=== PATIENT | female | born 1995 | race Native Hawaiian/Other Pacific Islander ===

== ENCOUNTER 2019-01-10 08:31 | Emergency (ER) | payer OTHER ==
[2019-01-10 08:55] VITALS: BP 110/62
--- NOTE | 2019-01-10 08:55 | Emergency Department Report ---
Chief Complaint: Sore Throat Stated Complaint: SORE THROAT Time Seen by Provider: 01/10/19 08:55 - HPI History of Present Illness: [employer] IN[employer] VSS MSE COMPLETED MSE screening note: Focused history and physical exam performed. Due to findings the following was ordered: ED Disposition for MSE Condition: Stable
[2019-01-10] MEDS ORDERED: DECADRON IM ONE (09:54)
[2019-01-10] MEDS ORDERED: AMOXICILLIN ORAL LIQD PO ONE (09:55)
--- NOTE | 2019-01-10 09:55 | Emergency Department Report ---
Minor Respiratory - HPI Chief Complaint: Sore Throat Stated Complaint: SORE THROAT Time Seen by Provider: 01/10/19 08:55 Duration: 2 Days Pain Location: Throat Severity: mild Minor Respiratory: Yes Rhinorrhea, Yes Sore Throat, Yes Able to Tolerate Fluids, No Ear Pain, No Cough, No Sick Contacts, No Hemoptysis, No Chest Pain, No Shortness of Breath, No Fever Other History: Patient is a 23-year-old female who comes to the ER complaining of a sore throat. She denies fever. She states that it hurts to swallow. ED Review of Systems ROS: Stated complaint: SORE THROAT Other details as noted in HPI Comment: All other systems reviewed and negative Constitutional: see HPI. denies: chills, fever Eyes: as per HPI. denies: eye pain, eye discharge ENT: as per HPI, throat pain Respiratory: see HPI. denies: cough, orthopnea, shortness of breath, SOB with exertion Cardiovascular: denies: chest pain, dyspnea on exertion Endocrine: denies: flushing Gastrointestinal: denies: nausea Genitourinary: denies: dysuria Musculoskeletal: denies: back pain Skin: denies: lesions Neurological: denies: weakness Psychiatric: denies: depression Hematological/Lymphatic: denies: easy bleeding ED Past Medical Hx - Past Medical History Previous Medical History?: No Additional medical history: Vaginal delivery 05-16-2013 - Surgical History Past Surgical History?: No - Family History Family history: no significant - Social History Smoking Status: Never Smoker Substance Use Type: None - Medications Home Medications: Home Medications Medication Instructions Recorded Confirmed Last Taken Type Amoxicillin 500 mg PO BID #20 capsule 01/10/19 Unknown Rx Minor Respiratory Exam - Exam General: Vital signs noted. No distress. Alert and acting appropriately. HEENT: Yes Pharyngeal Erythema, Yes Pharyngeal Exudates, Yes Moist Mucous Membranes, Yes Rhinorrhea, No Conjuctival Injection, No Frontal Tenderness, No Maxillary Tenderness Ear: Neither TM Bulge, Neither TM Erythema, Neither EAC Pain, Neither EAC Discharge Neck: Yes Supple, No Adenopathy Lungs: Yes Good Air Exchange, No Wheezes, No Ronchi, No Stridor, No Cough, No Labored Respirations, No Retractions, No Use of Accessory Muscles, No Other Abnormal Lung Sounds Heart: Yes Regular, No Murmur Abdomen: Yes Normal Bowel Sounds, No Tenderness, No Peritoneal Signs Skin: No Rash, No Edema Neurologic: Alert and oriented, no deficits. Musculoskeletal: Unremarkable. ED Course Vital Signs 01/10/19 08:48 Temperature 99.9 F H Pulse Rate 100 H Respiratory 16 Rate Blood Pressure 110/62 O2 Sat by Pulse 96 Oximetry ED Medical Decision Making - Medical Decision Making Labs 01/10/19 08:55 Group A Strep Rapid Positive A Patient was medicated in the emergency room. Patient discharged home with discharge instructions including follow-up Critical care attestation.: If time is entered above; I have spent that time in minutes in the direct care of this critically ill patient, excluding procedure time. ED Disposition Clinical Impression: Pharyngitis, Strep pharyngitis Disposition: - TO HOME OR SELFCARE Is pt being admited?: No Does the pt Need Aspirin: No Condition: Stable Instructions: Pharyngitis in Children (ED) Additional Instructions: hydrate well with water meds as ordered today good handwashing follow up pcp this week motrin or tylenol for pain Prescriptions: Amoxicillin 500 mg PO BID #20 capsule Referrals: QUITA YEAGER MD [Primary Care Provider] - 3-5 Days Time of Disposition: 10:06
== END 2019-01-10 10:51 | disposition home or self-care (01) ==
LOC: ED 08:31
DX: J20.9 Acute bronchitis, unspecified (principal)
CPT/HCPCS: 87430; 96372; 99283; J1100

== ENCOUNTER 2021-02-01 07:03 | Emergency (ER) | payer OTHER ==
[2021-02-01 07:47] VITALS: BP 94/64
[2021-02-01 08:43] LABS: Hematocrit 42.4 % (30.3-42.9); Hemoglobin 14.4 gm/dl (10.1-14.3); Mean Corpuscular HGB Conc 34 % (30-34); Mean Corpuscular Volume 89 fl (79-97); Platelet Count 214 K/mm3 (140-440); Red Blood Count 4.78 M/mm3 (3.65-5.03); Red Cell Distribution Width 13.9 % (13.2-15.2)
[2021-02-01 09:10] LABS: Alanine Aminotransferase 16 units/L (7-56); Albumin 4.6 g/dL (3.9-5); Blood Urea Nitrogen 12 mg/dL (7-17); Calcium 10.1 mg/dL (8.4-10.2); Hemolysis Index 3
[2021-02-01 09:15] LABS: BUN/Creatinine Ratio 20
[2021-02-01] MEDS ORDERED: ONDANSETRON 4 MG ODT TAB ONE (10:04)
[2021-02-01] MEDS ORDERED: ONDANSETRON 4 MG ODT TAB PO ONE (10:07)
--- NOTE | 2021-02-01 10:15 | Emergency Department Report ---
ED Female HPI - General Chief complaint: Nausea/Vomiting/Diarrhea Stated complaint: 9 WEEKS ;VOMITING Time Seen by Provider: 02/01/21 10:11 Source: patient Mode of arrival: Ambulatory Limitations: No Limitations - History of Present Illness Initial comments: Patient is a 25-year-old female that comes to the emergency room with nausea and vomiting associated with . Her last menstrual cycle was 1027. She is 9 weeks . She has seen her DIRECTOR EMERGENCY for nausea and vomiting, they gave her prescription, but she cannot get to pick it up. I told the patient that we would give her Zofran again today but she could walk across the street and get her medications. She has not had any active vomiting in the emergency room. 4, para 1, miscarriage 1, 1 Patient denies any cough, dysuria, abdominal pain, vaginal discharge, vaginal bleeding. -: Gradual, days(s) Severity: moderate Severity scale (0 -10): 0 Improves with: none Worsens with: none Are you Now?: Yes Associated Symptoms: denies other symptoms - Related Data Sexually active: Yes : 4 Para: 1 A: 2 Previous Rx's Medication Instructions Recorded Last Taken Type Ondansetron [Zofran Odt] 4 mg PO Q8HR PRN #20 tab.rapdis 02/01/21 Unknown Rx Allergies Allergy/AdvReac Type Severity Reaction Status Date / Time iodine Allergy Hives Verified 01/10/19 09:57 seafood Allergy Hives Uncoded 09/04/16 13:33 ED Review of Systems ROS: Stated complaint: 9 WEEKS ;VOMITING Other details as noted in HPI Comment: All other systems reviewed and negative ED Past Medical Hx - Past Medical History Previous Medical History?: No Additional medical history: Vaginal delivery 05-16-2013 - Surgical History Past Surgical History?: No - Social History Smoking Status: Never Smoker Substance Use Type: None - Medications Home Medications: Home Medications Medication Instructions Recorded Confirmed Last Taken Type Ondansetron [Zofran Odt] 4 mg PO Q8HR PRN #20 tab.rapdis 02/01/21 Unknown Rx ED Physical Exam - General Limitations: No Limitations General appearance: alert, in no apparent distress - Head Head exam: Present: atraumatic, normocephalic - Eye Eye exam: Present: normal appearance - ENT ENT exam: Present: mucous membranes moist - Neck Neck exam: Present: normal inspection - Respiratory Respiratory exam: Present: normal lung sounds bilaterally. Absent: respiratory distress - Cardiovascular Cardiovascular Exam: Present: regular rate, normal rhythm. Absent: systolic murmur, diastolic murmur, rubs, gallop - GI/Abdominal GI/Abdominal exam: Present: soft, normal bowel sounds - Extremities Exam Extremities exam: Present: normal inspection - Back Exam Back exam: Present: normal inspection - Neurological Exam Neurological exam: Present: alert, oriented X3 - Psychiatric Psychiatric exam: Present: normal affect, normal mood - Skin Skin exam: Present: warm, dry, intact, normal color. Absent: rash ED Course Vital Signs 02/01/21 07:45 Temperature 97.6 F Pulse Rate 76 Respiratory 16 Rate Blood Pressure 94/64 O2 Sat by Pulse 99 Oximetry ED Medical Decision Making - Lab Data Result diagrams: 02/01/21 08:25 02/01/21 08:25 - Medical Decision Making Lab Results 02/01/21 02/01/21 02/01/21 Range/Units 08:25 08:25 08:25 WBC 14.4 H (4.5-11.0) K/mm3 RBC 4.78 (3.65-5.03) M/mm3 Hgb 14.4 H (10.1-14.3) gm/dl Hct 42.4 (30.3-42.9) % MCV 89 (79-97) fl MCH 30 (28-32) pg MCHC 34 (30-34) % RDW 13.9 (13.2-15.2) % Plt Count 214 (140-440) K/mm3 Seg Neutrophils % Pollution Control Technician Sodium 134 L (137-145) mmol/L Potassium 3.7 (3.6-5.0) mmol/L Chloride 96.9 L (98-107) mmol/L Carbon Dioxide 25 (22-30) mmol/L Anion Gap 16 mmol/L BUN 12 (7-17) mg/dL Creatinine 0.6 (0.6-1.2) mg/dL Estimated GFR > 60 ml/min BUN/Creatinine Ratio 20 % Glucose 120 H (65-100) mg/dL Calcium 10.1 (8.4-10.2) mg/dL Total Bilirubin 0.50 (0.1-1.2) mg/dL AST 25 (5-40) units/L ALT 16 (7-56) units/L Alkaline Phosphatase 61 (35-129) units/L Total Protein 7.5 (6.3-8.2) g/dL Albumin 4.6 (3.9-5) g/dL Albumin/Globulin Ratio 1.6 % Lipase 14 (13-60) units/L HCG, Quant [id number] H (0-4) mIU/mL Vital Signs 02/01/21 07:45 Temperature 97.6 F Pulse Rate 76 Respiratory 16 Rate Blood Pressure 94/64 O2 Sat by Pulse 99 Oximetry 9 w preg with no vag bleeding or discharge Has had care. Medicated with NS/zofran On reexam- taking po without difficulty Pt dc to home with dc plan of care including obgyn follow up. She verbalizes understanding of plan. Ambulatory, non ill and non toxic on discharge. - Differential Diagnosis n/v of preg; ro uti Critical care attestation.: If time is entered above; I have spent that time in minutes in the direct care of this critically ill patient, excluding procedure time. ED Disposition Clinical Impression: , Nausea and vomiting in Disposition: DC-01 TO HOME OR SELFCARE Is pt being admited?: No Does the pt Need Aspirin: No Condition: Stable Instructions: First Trimester of Additional Instructions: MED ORDERED TODAY PLEASE GO ACROSS THE STREET AND GET YOUR MED HYDRATE WELL WITH WATER FOLLOW UP WITH OBGYN [facility] FOR ONGOING CARE AND CARE Prescriptions: Ondansetron [Zofran Odt] 4 mg PO Q8HR PRN #20 tab.rapdis PRN Reason: Vomiting Referrals: PRIMARY CARE, [Primary Care Provider] - 3-5 Days BLAISE COHEN MD [Staff Physician] - 3-5 Days Time of Disposition: 10:20
[2021-02-01] MEDS ORDERED: SODIUM CHLORIDE 0.9% 1000 ML 1,000 ML IV ONE ×2 (10:20→12:20)
[2021-02-01 11:31] LABS: Total Cells Counted 100
[2021-02-01 11:32] LABS: Ovalocytes Rare; Platelet Estimate Consistent w Auto
[2021-02-01 11:57] LABS: Bilirubin,Urine NEG (Negative); Blood,Urine NEG (Negative); Color,Urine Amber (Yellow); Mucus,Urine 3+ /HPF; Urobilinogen,Urine < 2.0 mg/dL (<2.0)
[2021-02-01] MEDS ORDERED: ONDANSETRON 4 MG/2 ML INJ IV ONE (12:27)
== END 2021-02-01 14:13 | disposition home or self-care (01) ==
LOC: ED 07:03
DX: O21.8 Other vomiting complicating pregnancy (principal); Z3A.09 9 weeks gestation of pregnancy; Z79.899 Other long term (current) drug therapy; Z91.013 Allergy to seafood; Z88.8 Allergy status to other drugs, medicaments and biological substances
CPT/HCPCS: 36415; 80053; 81001; 83690; 84702; 85007; 85025; 96361; 96374; 99283; J2405; J7030; Q0162

== ENCOUNTER 2021-02-20 21:23 | Emergency (ER) | payer OTHER ==
[2021-02-20] MEDS ORDERED: FAMOTIDINE 20 MG/2 ML INJ IV ONE (22:07)
[2021-02-20] MEDS ORDERED: SODIUM CHLORIDE 0.9% 1000 ML 1,000 ML IV ONE (22:07)
[2021-02-20] MEDS ORDERED: DICYCLOMINE 20 MG/2 ML INJ IM ONE (22:08)
[2021-02-20] MEDS ORDERED: PROCHLORPERAZINE EDISYLATE 10 MG/2 ML VIAL IV ONE (22:37)
[2021-02-20 22:53] LABS: Hematocrit 38.8 % (30.3-42.9); Hemoglobin 13.3 gm/dl (10.1-14.3); Mean Corpuscular HGB Conc 34 % (30-34); Mean Corpuscular Volume 88 fl (79-97); Platelet Count 206 K/mm3 (140-440); Red Blood Count 4.42 M/mm3 (3.65-5.03); Red Cell Distribution Width 13.5 % (13.2-15.2)
[2021-02-20 23:14] LABS: Alanine Aminotransferase 9 units/L (7-56); Albumin 4.3 g/dL (3.9-5); Blood Urea Nitrogen 8 mg/dL (7-17); Calcium 9.4 mg/dL (8.4-10.2); Hemolysis Index 6
[2021-02-20 23:16] LABS: BUN/Creatinine Ratio 20
[2021-02-20 23:28] LABS: Total Cells Counted 100
[2021-02-20 23:29] LABS: Ovalocytes Rare; RBC Morphology Normal
[2021-02-21] MEDS ORDERED: diphenhydrAMINE 50 MG/ML VIAL IV ONE ×2 (00:05→04:10)
[2021-02-21] MEDS ORDERED: SODIUM CHLORIDE 0.9% 1000 ML 1,000 ML IV ONE (00:05)
[2021-02-21] MEDS ORDERED: METOCLOPRAMIDE 10 MG/2 ML INJ IV ONE ×2 (00:05→04:08)
[2021-02-21 01:19] LABS: Bilirubin,Urine NEG (Negative); Blood,Urine NEG (Negative); Color,Urine Yellow (Yellow); Mucus,Urine 3+ /HPF; Urobilinogen,Urine < 2.0 mg/dL (<2.0)
--- NOTE | 2021-02-21 02:05 | Emergency Department Report ---
ED N/V/D HPI - General Chief complaint: Abdominal Pain Stated complaint: N/V, FATIGUE Source: patient Mode of arrival: Wheelchair Limitations: No Limitations - History of Present Illness Initial comments: Patient is a A2 25-year-old female with no past medical history and who is approximately 12 weeks gestation presents to the ED with complaint of acute onset persistent severe intractable nausea and vomiting for the last 12 hours. Patient states that she has not been able to keep anything down the last 12 hours and now feels lightheaded, generalized weakness and fatigue. Patient states that she has had multiple episodes of nausea and vomiting and that not even water stays down. Patient denies vaginal bleeding, vaginal discharge, abdominal pain, fever, chills, cough, chest pain, shortness of breath, sore throat, headache, dizziness, change in vision, traumatic injury or back pain MD complaint: nausea, vomiting -: Sudden, hour(s) (12) Description of Vomiting: food contents, watery, bilious Associated Abdominal Pain: No Location: diffuse Radiation: none Severity: severe Pain Scale: 7 Quality: dull Consistency: intermittent Improves with: none Worsens with: eating, vomiting Context: other (12 weeks gestation) Associated Symptoms: denies other symptoms, loss of appetite, malaise, nausea/vo miting, weakness. denies: myalgias, chest pain, cough, diaphoresis, fever/chills, headaches, rash, dysuria, shortness of breath, syncope, other - Related Data Previous Rx's Medication Instructions Recorded Last Taken Type Ondansetron [Zofran Odt] 4 mg PO Q8HR PRN #20 tab.rapdis 02/01/21 Unknown Rx Famotidine [Pepcid] 20 mg PO BID #40 tablet 02/21/21 Unknown Rx Prochlorperazine Maleate 10 mg PO Q6H PRN #30 tablet 02/21/21 Unknown Rx [Compazine] Promethazine HCl [Phenergan SUPPOS] 25 mg RC Q6H PRN #20 supp.rect 02/21/21 Unknown Rx Allergies Allergy/AdvReac Type Severity Reaction Status Date / Time iodine Allergy Hives Verified 01/10/19 09:57 seafood Allergy Hives Uncoded 09/04/16 13:33 ED Review of Systems ROS: Stated complaint: N/V, FATIGUE Other details as noted in HPI Constitutional: denies: chills, fever Eyes: denies: eye pain, eye discharge, vision change ENT: denies: ear pain, throat pain Respiratory: denies: cough, shortness of breath, wheezing Cardiovascular: denies: chest pain, palpitations Endocrine: no symptoms reported Gastrointestinal: nausea, vomiting. denies: abdominal pain, diarrhea, hematochezia Genitourinary: denies: urgency, dysuria, discharge Musculoskeletal: denies: back pain, joint swelling, arthralgia Skin: denies: rash, lesions Neurological: denies: headache, weakness, paresthesias Psychiatric: denies: anxiety, depression Hematological/Lymphatic: denies: easy bleeding, easy bruising ED Past Medical Hx - Past Medical History Previous Medical History?: No Additional medical history: Vaginal delivery 05-16-2013 - Social History Smoking Status: Never Smoker Substance Use Type: None - Medications Home Medications: Home Medications Medication Instructions Recorded Confirmed Last Taken Type Ondansetron [Zofran Odt] 4 mg PO Q8HR PRN #20 tab.rapdis 02/01/21 Unknown Rx Famotidine [Pepcid] 20 mg PO BID #40 tablet 02/21/21 Unknown Rx Prochlorperazine Maleate 10 mg PO Q6H PRN #30 tablet 02/21/21 Unknown Rx [Compazine] Promethazine HCl [Phenergan SUPPOS] 25 mg RC Q6H PRN #20 supp.rect 02/21/21 Unknown Rx ED Physical Exam - General Limitations: No Limitations General appearance: alert, in no apparent distress - Head Head exam: Present: atraumatic, normocephalic, normal inspection - Eye Eye exam: Present: normal appearance, PERRL, EOMI Pupils: Present: normal accommodation - ENT ENT exam: Present: normal exam, normal orophraynx, mucous membranes moist, TM's normal bilaterally, normal external ear exam - Neck Neck exam: Present: normal inspection, full ROM - Respiratory Respiratory exam: Present: normal lung sounds bilaterally. Absent: respiratory distress, wheezes, rales, rhonchi, chest wall tenderness, accessory muscle use, decreased breath sounds, prolonged expiratory - Cardiovascular Cardiovascular Exam: Present: regular rate, normal rhythm, normal heart sounds. Absent: systolic murmur, diastolic murmur, rubs, gallop - GI/Abdominal GI/Abdominal exam: Present: soft, normal bowel sounds. Absent: tenderness, guarding, hyperactive bowel sounds, hypoactive bowel sounds, mass - Extremities Exam Extremities exam: Present: normal inspection, full ROM, normal capillary refill - Back Exam Back exam: Present: normal inspection, full ROM. Absent: tenderness, CVA tenderness (R), CVA tenderness (L), muscle spasm, paraspinal tenderness - Neurological Exam Neurological exam: Present: alert, oriented X3, CN II-XII intact, normal gait, reflexes normal - Psychiatric Psychiatric exam: Present: normal affect, normal mood - Skin Skin exam: Present: warm, dry, intact, normal color. Absent: rash ED Course Vital Signs 02/20/21 22:13 Temperature 97.9 F Pulse Rate 78 Respiratory 18 Rate Blood Pressure 145/125 [Right] O2 Sat by Pulse 100 Oximetry ED Medical Decision Making - Lab Data Result diagrams: 02/20/21 22:33 02/20/21 22:33 - Medical Decision Making This is a A2 25-year-old female with no past medical history and who is approximately 12 weeks gestation presents to the ED with complaint of acute onset persistent severe intractable nausea and vomiting for the last 12 hours. Patient states that she has not been able to keep anything down the last 12 hours and now feels lightheaded, generalized weakness and fatigue. Patient states that she has had multiple episodes of nausea and vomiting and that not even water stays down. In the ED, patient is alert and oriented x3 and is not in distress but appears anxious and uncomfortable. Patient is hemodynamically stable. Lab test results were reviewed and showed acute leukocytosis of 17,600, mild hyponatremia 136 mmol/L. Urinalysis is unremarkable. Patient was treated for nausea and vomiting with antiemetics, 2 L of normal saline IV bolus. On reevaluation, patient nausea and vomiting resolved with medications. Patient passed oral fluid challenge in the ED. Patient was therefore discharged home on antiemetics and antacids, and was advised to maintain a clear liquid diet for 12 to 24 hours, and to follow-up with [employer] physician in 2 to 3 days for reevaluation. Patient advised return to the ED immediately if symptoms get worse. At the time of the patient's discharge from the ED, patient was hemodynamically stable, alert and oriented x4. - Differential Diagnosis Hyperemesis gravidarum; dehydration; GERD; gastritis; UTI Critical care attestation.: If time is entered above; I have spent that time in minutes in the direct care of this critically ill patient, excluding procedure time. ED Disposition Clinical Impression: Hyperemesis gravidarum, Intractable nausea and vomiting GERD (gastroesophageal reflux disease) Qualifiers: Esophagitis presence: esophagitis presence not specified Qualified Code(s): K21.9 - Gastro-esophageal reflux disease without esophagitis Disposition: TO HOME OR SELFCARE Is pt being admited?: No Does the pt Need Aspirin: No Condition: Stable Instructions: Hyperemesis Gravidarum, Nausea and Vomiting, Adult, [id number], Morning Sickness, [id number], Gastroesophageal Reflux Disease, Adult, [id number], Abdominal Pain (ED) Additional Instructions: All lab test results were reviewed and are all nonactionable. Therefore maintain a clear liquid diet for 12 to 24 hours, drink plenty of fluids, take medication as needed for nausea and vomiting and follow-up with your [employer] physician in 2 to 3 days for reevaluation. Return to the ED immediately if symptoms get worse. Prescriptions: Prochlorperazine Maleate [Compazine] 10 mg PO Q6H PRN #30 tablet PRN Reason: Nausea And Vomiting Famotidine [Pepcid] 20 mg PO BID #40 tablet Promethazine HCl [Phenergan SUPPOS] 25 mg RC Q6H PRN #20 supp.rect PRN Reason: Nausea And Vomiting Referrals: BLAISE COHEN MD [Staff Physician] - 3-5 Days Time of Disposition: 02:08 Print Language: BENINESE
[2021-02-21 04:39] VITALS: BP 103/62
== END 2021-02-21 04:32 | disposition home or self-care (01) ==
LOC: ED 21:23
DX: O21.0 Mild hyperemesis gravidarum (principal); O99.611 Diseases of the digestive system complicating pregnancy, first trimester; K21.9 Gastro-esophageal reflux disease without esophagitis; Z3A.12 12 weeks gestation of pregnancy; Z79.899 Other long term (current) drug therapy; Z91.013 Allergy to seafood; Z88.8 Allergy status to other drugs, medicaments and biological substances
CPT/HCPCS: 36415; 80053; 81001; 83690; 84702; 84703; 85007; 85025; 96361; 96372; 96374; 96375; 99283; J0500; J0780; J1200; J2765; J7030

== ENCOUNTER 2021-08-24 16:28 | Inpatient (IN) | payer OTHER ==
[2021-08-24] MEDS ORDERED: miSOPROStol 200 MCG TAB PR PRN (19:01)
[2021-08-24] MEDS ORDERED: OXYTOCIN 10 UNIT/1 ML INJ IM PRN (19:01)
[2021-08-24] MEDS ORDERED: LOPERAMIDE 2 MG CAP PO PRN (19:01)
[2021-08-24] MEDS ORDERED: ACETAMINOPHEN 325 MG TAB PO PRN (19:01)
[2021-08-24] MEDS ORDERED: PROMETHAZINE 25 MG TAB PO PRN (19:01)
[2021-08-24] MEDS ORDERED: MINERAL OIL 30 ML ORAL LIQD PO PRN (19:01)
[2021-08-24] MEDS ORDERED: ePHEDrine SULFATE 50 MG/1 ML INJ IV PRN ×2 (19:01→21:54)
[2021-08-24] MEDS ORDERED: CARBOPROST TROMETHAMINE 250 MCG/1 ML INJ IM PRN (19:01)
[2021-08-24] MEDS ORDERED: NalbUPHINE 10 MG/1 ML INJ IV PRN (19:01)
[2021-08-24] MEDS ORDERED: fentaNYL 100 MCG/2 ML INJ IV PRN (19:01)
[2021-08-24] MEDS ORDERED: METHYLERGONOVINE MALEATE 0.2 MG/ML VIAL IM PRN (19:01)
[2021-08-24] MEDS ORDERED: TERBUTALINE 1 MG/1 ML INJ SUB-Q PRN (19:01)
[2021-08-24] MEDS ORDERED: LACTATED RINGERS 1,000 ML IV SCH (19:15)
--- NOTE | 2021-08-24 19:37 | History and Physical Report ---
History of Present Illness Date of examination: 08/24/21 Date of admission: 08/24/21 Chief complaint: came to triage with c/o painful contractions History of present illness: at 39.1wks by LMP c/w U/Sound. Pt c/o painful contractions and desires epidural. Pt was evaluated in triage by Dr. Vergara with laboring cervix. Pt admits to movement, denies LOF or vag bleed. records with blood type A+, antibody screen neg, rubella non-immune, VDRL non-reactive, HepBsAg neg and HIV neg. GBS neg. Pt also smokes marijuana and has history of asthma from records. Past History Past Medical History: asthma Past Surgical History: no surgical history Social history: other (marijuana use) - Obstetrical History Expected Date of Delivery: 08/30/21 Actual Gestation: 39 Week(s) 1 Day(s) : 4 Hx # Term Pregnancies: 1 Spontaneous Abortions: 1 Induced : 1 Number of Living Children: 1 Medications and Allergies Allergies Allergy/AdvReac Type Severity Reaction Status Date / Time iodine Allergy Hives Verified 01/10/19 09:57 seafood Allergy Hives Uncoded 09/04/16 13:33 Home Medications Medication Instructions Recorded Confirmed Last Taken Type Ondansetron [Zofran Odt] 4 mg PO Q8HR PRN #20 tab.rapdis 02/01/21 Unknown Rx Famotidine [Pepcid] 20 mg PO BID #40 tablet 02/21/21 Unknown Rx Prochlorperazine Maleate 10 mg PO Q6H PRN #30 tablet 02/21/21 Unknown Rx [Compazine] Promethazine HCl [Phenergan SUPPOS] 25 mg RC Q6H PRN #20 supp.rect 02/21/21 Unknown Rx Active Meds: Active Medications Acetaminophen (Acetaminophen 325 Mg Tab) 650 mg PO Q4H PRN PRN Reason: Pain, Mild (1-3) Carboprost Tromethamine (Carboprost Tromethamine 250 Mcg/1 Ml Inj) 250 mcg IM ONCE PRN PRN Reason: Uterine Bleeding Ephedrine Sulfate (Ephedrine Sulfate 50 Mg/1 Ml Inj) 10 mg IV Q2M PRN PRN Reason: Hypotension Fentanyl (Fentanyl 100 Mcg/2 Ml Inj) 100 mcg IV Q2H PRN PRN Reason: Pain,Severe (7-10) LABOR PAIN Oxytocin/Sodium Chloride (Pitocin/Ns 30 Unit/500ml) 30 units in 500 mls @ 2 mls/hr IV TITR DELL; Protocol Lactated Ringer's (Lactated Ringers) 1,000 mls @ 125 mls/hr IV DIRECT DELL Oxytocin/Sodium Chloride (Pitocin/Ns 30 Unit/500ml) 30 units in 500 mls @ 40 mls/hr IV TITR DELL; Protocol Lidocaine (Lidocaine (2%) 20 Mg/1 Ml Vial 20 Ml Mdv) 20 ml INFILTRATI ONCE ONE Stop: 08/24/21 20:02 Loperamide HCl (Loperamide 2 Mg Cap) 2 mg PO ONCE PRN PRN Reason: give with Hemabate Methylergonovine Maleate (Methylergonovine Maleate 0.2 Mg/Ml Vial) 0.2 mg IM ONCE PRN PRN Reason: Uterine Bleeding Mineral Oil (Mineral Oil 30 Ml Oral Liqd) 30 ml PO QHS PRN PRN Reason: Constipation Misoprostol (Misoprostol 200 Mcg Tab) 800 mcg SD ONCE PRN PRN Reason: Uterine Bleeding Nalbuphine HCl (Nalbuphine 10 Mg/1 Ml Inj) 10 mg IV Q2H PRN PRN Reason: Pain, Moderate (4-6) Oxytocin (Oxytocin 10 Unit/1 Ml Inj) 10 unit IM ONCE PRN PRN Reason: Uterine Bleeding Promethazine HCl (Promethazine 25 Mg Tab) 25 mg PO Q6H PRN PRN Reason: Nausea And Vomiting Terbutaline Sulfate (Terbutaline 1 Mg/1 Ml Inj) 0.25 mg SUB-Q ONCE PRN PRN Reason: Hyperstimulation/Hypertonicity Review of Systems All systems: negative (painful contractions) - Vital Signs Vital signs: Vital Signs Pulse BP 81 110/68 08/24/21 17:13 08/24/21 17:13 Temp Pulse Resp BP Pulse Ox 98.8 F 84 20 110/68 100 08/24/21 17:14 08/24/21 19:30 08/24/21 17:14 08/24/21 17:14 08/24/21 19:30 - Physical Exam Breasts: Positive: deferred Cardiovascular: Regular rate Lungs: Positive: Normal air movement Uterus: Positive: enlarged (non-tender) Extremities: Positive: normal - Obstetrical FHR: category 1 Uterine Contraction Monitor Mode: External Results All other labs normal. Assessment and Plan Term preg in latent labor, GBS negative; H/O asthma controlled without meds. Rubella non-immune; substance abuse 1. Admit to labor and delivery, blood type and screen, CBC and urine drug screen 2. May have IV pain med or epidural when desired. 3. Augment labor with pitocin 4. for rubella vaccine if pt accepts Expect
[2021-08-24 19:59] LABS: Hematocrit 38.1 % (30.3-42.9); Hemoglobin 12.4 gm/dl (10.1-14.3); Mean Corpuscular HGB Conc 33 % (30-34); Mean Corpuscular Volume 89 fl (79-97); Platelet Count 203 K/mm3 (140-440); Red Cell Distribution Width 13.4 % (13.2-15.2)
[2021-08-24] MEDS ORDERED: OXYTOCIN DRIP 30 UNITS/500 ML BAG IV SCH ×2 (20:00)
[2021-08-24] MEDS ORDERED: LIDOCAINE (2%) 20 MG/1 ML VIAL 20 ML MDV INFILTRATI ONE (20:01)
[2021-08-24] MEDS ORDERED: NALOXONE 2 MG/2 ML INJ IV PRN (21:54)
--- NOTE | 2021-08-24 21:58 | Anesthesia Consultation ---
Anesthesia Consult and Med Hx Date of service: 08/24/21 - Airway Anesthetic Teeth Evaluation: Poor ROM Head & Neck: Adequate Mental/Hyoid Distance: Adequate Mallampati Class: Class II Intubation Access Assessment: Probably Good - Pulmonary Exam CTA: Yes - Cardiac Exam Cardiac Exam: RRR - Pre-Operative Health Status ASA Pre-Surgery Classification: ASA2 Proposed Anesthetic Plan: Epidural - Pulmonary Hx Smoking: Yes (marijuana use) Hx Asthma: Yes (as a child) Hx Respiratory Symptoms: No SOB: No COPD: No Home Oxygen Therapy: No Hx Pneumonia: No Hx Sleep Apnea: No - Cardiovascular System Hx Hypertension: No Hx Coronary Artery Disease: No Hx Heart Attack/AMI: No Hx Angina: No Hx Percutaneous Transluminal Coronary Angioplasty (PTCA): No Hx Cardia Arrhythmia: No Hx Pacemaker: No Hx Internal Defibrillator: No Hx Valvular Heart Disease: No Hx Heart Murmur: No Hx Peripheral Vascular Disease: No - Central Nervous System Hx Neuromuscular Disorder: No Hx Seizures: Yes (as a child) CVA: No Hx Back Pain: Yes Hx Psychiatric Problems: No - Gastrointestinal Hx Ulcer: No Hx Gastroesophageal Reflux Disease: Yes - Endocrine Hx Renal Disease: No Hx End Stage Renal Disease: No Hx Cirrhosis: No Hx Liver Disease: No Hx Insulin Dependent Diabetes: No Hx Non-Insulin Dependent Diabetes: No Hx Thyroid Disease: No Hx Hypothyroidism: No Hx Hyperthyroidism: No - Hematic Hx Anemia: No Hx Sickle Cell Disease: No - Other Systems Hx Alcohol Use: No Hx Substance Use: Yes (marijuana use) Hx Cancer: No Hx Obesity: No
[2021-08-24] MEDS ORDERED: fentaNYL-BUPIV 2 MCG/ML-0.125% 200 MCG/100 ML BAG EPIDURAL SCH (22:00)
--- NOTE | 2021-08-24 22:50 | Progress Note ---
Labor Epidural - Labor Epidural Start Time: 22:18 Stop Time: 22:39 Performed by:: TOMASA CORDERO Procedure: Patient is requesting a laboring epidural for laboring pain. Patient IDed, H&P reviewed, all questions and concerns were answered, and consent was signed. Timeout was performed at bedside. Patient in sitting position. Sterile prep and drape was performed. [3] ml of 1% lidocaine skin wheal at L[3]- L [4]. 18- gauge Tuohy epidural needle was advanced to loss of resistance with saline technique 6cm [id number](patient found it difficult not to move. Had to stop multiple times) . Negative CSF negative blood. Epidural catheter advanced to [9] centimeters. [NEGATIVE] Aspiration [NEGATIVE] test dose. Sterile dressing applied. Patient tolerated procedure.
--- NOTE | 2021-08-24 23:57 | Event Note ---
Date: 08/24/21 pt evaluated after epidural done and pelvic now 6-/-, AROM done with large amount of pink tinged fluid. FHR remains category I and no pitocin has been given. Expect .
--- NOTE | 2021-08-25 02:34 | Procedure Note ---
OB Delivery Note - Delivery Date of Delivery: 08/25/21 Surgeon: DANIEL ALVARADO Estimated blood loss: other (150cc) - Vaginal Delivery presentation: vertex Delivery position: OP Intrapartum events: shoulder dystocia Delivery induction: none Delivery augmentation: pitocin (when pt reached 8cm) Delivery monitor: external FHT, external uterine Route of delivery: Delivery placenta: spontaneous (with calcifications noted and small accessory lobe) Episiotomy: none Delivery laceration: none Anesthesia: epidural Delivery comments: SAVD of viable male O-P presentation then post delivery of head, pt gave up on pushing effectively. Shoulder dystocia relieved with Alejandro, suprapubic pressure and posterior delivery of left arm done by me; body delivered uncomplicated. [facility] team came and evaluated baby. Placenta delivered within 30mins, slow with calcifications noted; 3 vessel cord present. Pt sustained no lacerations and cervix viewed completely. Bimanual exam done and uterus firm. Mom and baby stable. - A at 1 minute: 8 at 5 minutes: 9 Infant Gender: Male (wt 3060g;)
[2021-08-25] MEDS ORDERED: PROMETHAZINE 25 MG RECT SUPP PR PRN (04:03)
[2021-08-25] MEDS ORDERED: HYDROCORTISONE 25 MG RECTAL SUPP PR PRN (04:03)
[2021-08-25] MEDS ORDERED: LANOLIN/ZINC/DIMETHICONE (LANSINOH) 7 GM TP PRN (04:03)
[2021-08-25] MEDS ORDERED: diphenhydrAMINE 25 MG CAP PO PRN (04:03)
[2021-08-25] MEDS ORDERED: MAGNESIUM HYDROXIDE (MOM) ORAL LIQD UDC PO PRN (04:03)
[2021-08-25] MEDS ORDERED: ONDANSETRON 4 MG/2 ML INJ IV PRN (04:03)
[2021-08-25] MEDS ORDERED: WITCH HAZEL/ GLYCERIN PAD TP PRN (04:03)
[2021-08-25] MEDS ORDERED: PROMETHAZINE 25 MG TAB PO PRN (04:03)
[2021-08-25] MEDS ORDERED: BENZOCAINE/MENTHOL 20/0.5% TOP SPRAY 56 GM TP PRN (04:03)
[2021-08-25] MEDS: IBUPROFEN 600 MG TAB PO SCH ×3 (04:32→18:10)
--- NOTE | 2021-08-25 07:32 | Post Anesthesia Evaluation ---
- Post Anesthesia Evaluation Patient Participated: Yes Airway Patent: Yes Stable Respiratory Function: Yes Nausea/Vomiting: No Temp > 96.8F: Yes Pain Manageable: Yes Adequeate Hydration: Yes Anesthesia Complications: No Block Receding Appropriately: Yes Patient on Ventilator: No
[2021-08-25] MEDS: oxyCODONE /ACETAMINOPHEN 5-325MG TAB PO PRN ×2 (08:20→20:00)
[2021-08-25 15:32] LABS: Amphetamine Screen,Urine Negative; Benzodiazepines Screen,Urine Negative; Cocaine Screen,Urine Negative; Methadone Screen,Urine Negative; Opiate Screen,Urine Negative
[2021-08-25 15:43] LABS: Hematocrit 34.9 % (30.3-42.9); Hemoglobin 11.6 gm/dl (10.1-14.3)
[2021-08-25 15:54] LABS: Cannabinoid Screen,Urine Positive
[2021-08-26] MEDS: IBUPROFEN 600 MG TAB PO SCH ×4 (06:00→20:46)
--- NOTE | 2021-08-26 06:21 | Progress Note ---
Assessment and Plan routine PP care dc home tomorrow Daysi Vergara MD Subjective - Subjective Date of service: 08/26/21 Patient reports: appetite normal, voiding normally, pain well controlled, ambulating normally : doing well Objective - Vital Signs Latest vital signs: Vital Signs Temp Pulse Resp BP Pulse Ox Pulse Ox 08/26/21 06:00 18 08/26/21 01:00 18 08/26/21 00:00 18 08/25/21 23:55 97.6 F 63 18 101/61 99 08/25/21 21:00 18 08/25/21 20:00 18 98 08/25/21 16:03 98.3 F 71 16 105/67 98 08/25/21 11:53 98.4 F 67 16 105/63 97 08/25/21 07:48 97.6 F 70 20 101/65 100 Intake and Output 08/25/21 08/25/21 08/26/21 15:59 23:59 07:59 Intake Total 360 240 240 Output Total 300 Balance 60 240 240 Intake: Oral 360 240 Intake, Free Water 240 Output: Urine 300 Void 300 Other: Total, Intake Amount 240 240 Total, Output Amount 300 # Voids Void 1 1 2 - Exam Breasts: Present: deferred Cardiovascular: Present: Regular rate Lungs: Present: Clear to auscultation Abdomen: Present: normal appearance, normal bowel sounds Vulva: both: normal Uterus: Present: normal, firm, fundal height below umbilicus Extremities: Present: normal Deep Tendon Reflex Grade: Normal +2
[2021-08-26] MEDS: oxyCODONE /ACETAMINOPHEN 5-325MG TAB PO PRN (14:18)
[2021-08-27] MEDS: oxyCODONE /ACETAMINOPHEN 5-325MG TAB PO PRN (01:34)
--- NOTE | 2021-08-27 05:50 | Discharge Summary ---
Providers - Providers Date of Admission: 08/24/21 19:01 Date of discharge: 08/27/21 Attending physician: DANIEL ALVARADO 08/25/21 18:52 Consult to Case Management [CONS] Routine Services Needed at Discharge: Promotions Executive Producer Notified:: yes Phone number called:: [phone] Was contact made?: Yes Time called:: 09:44 Comment:: Positive drug screen Additional Physician Instructions: see chart for orders Primary care physician: DANIEL ALVARADO Hospitalization Reason for admission: active labor Delivery: Episiotomy: none Laceration: none Discharge diagnosis: IUP at term delivered Condition at discharge: Stable Disposition: 01 HOME / SELF CARE / HOMELESS Plan - Provider Discharge Summary Additional instructions: [] Smoking cessation referral if applicable(refer to patient education folder for contact #) [] Refer to [facility] Booklet Call your doctor immediately for: * Fever > 100.5 * Heavy vaginal bleeding ( >1 pad per hour) * Severe persistent headache * Shortness of breath * Reddened, hot, painful area to leg or breast * Drainage or odor from incision. * Keep incision clean and dry at all times and follow doctor's instructions regarding bathing/showering - Follow up plan Follow up: DANIEL ALVARADO MD [Primary Care Provider] - 6 Weeks
[2021-08-27] MEDS: IBUPROFEN 600 MG TAB PO SCH (06:17)
[2021-08-27 11:38] VITALS: BP 133/80
== END 2021-08-27 11:30 | disposition home or self-care (01) | DRG 775 ==
LOC: TRG 16:28 → APU 16:34 → LD 18:55 → TRG 19:01 → OB 08-25 05:21
PROVIDERS: ADMIT Obstetrics & Gynecology; ATTEND Obstetrics & Gynecology
PROC: 10E0XZZ Delivery of Products of Conception, External Approach (ICD-10-PCS; principal; 2021-08-25)
PROC: 10907ZC Drainage of Amniotic Fluid, Therapeutic from Products of Conception, Via Natural or Artificial Opening (ICD-10-PCS; 2021-08-25)
PROC: 3E0R3BZ Introduction of Anesthetic Agent into Spinal Canal, Percutaneous Approach (ICD-10-PCS; 2021-08-25)
PROC: 00HU33Z Insertion of Infusion Device into Spinal Canal, Percutaneous Approach (ICD-10-PCS; 2021-08-25)
DX: O66.0 Obstructed labor due to shoulder dystocia (principal); Z3A.39 39 weeks gestation of pregnancy; Z37.0 Single live birth; Z20.822 Contact with and (suspected) exposure to COVID-19; O99.52 Diseases of the respiratory system complicating childbirth; J45.909 Unspecified asthma, uncomplicated; O99.62 Diseases of the digestive system complicating childbirth; O99.324 Drug use complicating childbirth; F12.10 Cannabis abuse, uncomplicated
CPT/HCPCS: 36415; 80307; 85014; 85018; 85027; 86592; 86850; 86900; 86901; 99211; G0378; G0463; J2405; U0003

== ENCOUNTER 2022-06-17 07:26 | Emergency (ER) | payer OTHER ==
[2022-06-17] MEDS ORDERED: ONDANSETRON 4 MG/2 ML INJ IV ONE (09:56)
[2022-06-17] MEDS ORDERED: SODIUM CHLORIDE 0.9% 1000 ML 1,000 ML IV ONE (09:56)
--- NOTE | 2022-06-17 09:58 | Emergency Department Report ---
ED General Adult HPI - General Chief complaint: Nausea/Vomiting/Diarrhea Stated complaint: WITH TWINS AND FEELING WEAK Time Seen by Provider: 06/17/22 09:43 Source: patient Mode of arrival: Ambulatory Limitations: No Limitations - History of Present Illness Initial comments: 26-year-old female no significant past medical history G2, P3 reports to the ER today with complaints of nausea and vomiting since last night unable to hold down fluids. Patient reports she is 10 weeks with twins. Patient reports that her last she had similar symptoms of increased nausea and vomiting. Patient denies abdominal pain, no vaginal bleeding, no vaginal pain, no vaginal discharge. Patient just reports that she feels weak after nausea and vomiting since last night. No other acute symptoms reported. Severity scale (0 -10): 0 - Related Data Previous Rx's Medication Instructions Recorded Last Taken Type Ondansetron [Zofran Odt] 4 mg PO Q8HR PRN #20 tab.rapdis 02/01/21 Unknown Rx Famotidine [Pepcid] 20 mg PO BID #40 tablet 02/21/21 Unknown Rx Prochlorperazine Maleate 10 mg PO Q6H PRN #30 tablet 02/21/21 Unknown Rx [Compazine] Promethazine HCl [Phenergan SUPPOS] 25 mg RC Q6H PRN #20 supp.rect 02/21/21 Unknown Rx Ibuprofen [Motrin] 600 mg PO Q8H PRN #60 tablet 08/27/21 Unknown Rx Ondansetron [Zofran Odt] 4 mg PO Q12HR PRN 3 Days #6 06/17/22 Unknown Rx tab.rapdis Allergies Allergy/AdvReac Type Severity Reaction Status Date / Time iodine Allergy Hives Verified 01/10/19 09:57 seafood Allergy Hives Uncoded 09/04/16 13:33 ED Review of Systems ROS: Stated complaint: WITH TWINS AND FEELING WEAK Other details as noted in HPI Comment: All other systems reviewed and negative Gastrointestinal: nausea, vomiting. denies: abdominal pain, diarrhea ED Past Medical Hx - Past Medical History Previous Medical History?: Yes Hx Hypertension: No Hx Heart Attack/AMI: No Hx Diabetes: No Hx Deep Vein Thrombosis: No Hx Liver Disease: No Hx Renal Disease: No Hx Sickle Cell Disease: No Hx Seizures: Yes (as a child) Hx Asthma: Yes (as a child) Hx COPD: No Hx HIV: No Additional medical history: Vaginal delivery 05-16-2013 and 08-25-2021 - Surgical History Hx Pacemaker: No Hx Internal Defibrillator: No - Social History Smoking Status: Never Smoker - Medications Home Medications: Home Medications Medication Instructions Recorded Confirmed Last Taken Type Ondansetron [Zofran Odt] 4 mg PO Q8HR PRN #20 tab.rapdis 02/01/21 Unknown Rx Famotidine [Pepcid] 20 mg PO BID #40 tablet 02/21/21 Unknown Rx Prochlorperazine Maleate 10 mg PO Q6H PRN #30 tablet 02/21/21 Unknown Rx [Compazine] Promethazine HCl [Phenergan SUPPOS] 25 mg RC Q6H PRN #20 supp.rect 02/21/21 Unknown Rx Ibuprofen [Motrin] 600 mg PO Q8H PRN #60 tablet 08/27/21 Unknown Rx Ondansetron [Zofran Odt] 4 mg PO Q12HR PRN 3 Days #6 06/17/22 Unknown Rx tab.rapdis ED Physical Exam - General Limitations: No Limitations General appearance: alert, in no apparent distress - Head Head exam: Present: atraumatic, normocephalic - Eye Eye exam: Present: normal appearance - ENT ENT exam: Present: mucous membranes moist - Neck Neck exam: Present: normal inspection - Respiratory Respiratory exam: Present: normal lung sounds bilaterally. Absent: respiratory distress - Cardiovascular Cardiovascular Exam: Present: regular rate, normal rhythm. Absent: systolic murmur, diastolic murmur, rubs, gallop - GI/Abdominal GI/Abdominal exam: Present: soft, normal bowel sounds. Absent: distended, tenderness, guarding, rebound - Extremities Exam Extremities exam: Present: normal inspection - Back Exam Back exam: Present: normal inspection - Neurological Exam Neurological exam: Present: alert, oriented X3 - Psychiatric Psychiatric exam: Present: normal affect, normal mood - Skin Skin exam: Present: warm, dry, intact, normal color. Absent: rash ED Course Vital Signs 06/17/22 06/17/22 06/17/22 08:07 09:51 09:56 Temperature 97.6 F 98.9 F Pulse Rate 73 91 H Respiratory 20 14 Rate Blood Pressure 121/71 [Right] O2 Sat by Pulse 99 98 98 Oximetry 06/17/22 13:00 Temperature 98.9 F Pulse Rate 89 Respiratory 14 Rate Blood Pressure 115/72 [Right] O2 Sat by Pulse 98 Oximetry ED Medical Decision Making - Lab Data Result diagrams: 06/17/22 08:46 06/17/22 08:46 - Medical Decision Making 26-year-old female no significant past medical history G2, P3 reports to the ER today with complaints of nausea and vomiting since last night unable to hold down fluids. Patient reports she is 10 weeks with twins. Patient reports that her last she had similar symptoms of increased nausea and vomiting. Patient denies abdominal pain, no vaginal bleeding, no vaginal pain, no vaginal discharge. Patient just reports that she feels weak after nausea and vomiting since last night. No other acute symptoms reported. On physical exam no acute signs or symptoms noted. No abdominal tenderness no abdominal distention noted. Labs are unremarkable. Patient reports feeling better after receiving IV fluids and IV Zofran. Reassessment was at 11:45 AM. Patient is stable for discharge home. Patient will be sent home with oral Zofran ODT for nausea. Patient informed to follow her INSULATOR TECHNICIAN for further evaluation and treatment. Patient agrees with plan of care and verbalized understanding. Vital Signs 06/17/22 06/17/22 06/17/22 08:07 09:51 09:56 Temperature 97.6 F 98.9 F Pulse Rate 73 91 H Respiratory 20 14 Rate Blood Pressure 121/71 [Right] O2 Sat by Pulse 99 98 98 Oximetry Lab Results 06/17/22 06/17/22 Range/Units 08:46 08:46 WBC 12.5 H (4.5-11.0) K/mm3 RBC 4.71 (3.65-5.03) M/mm3 Hgb 13.7 (10.1-14.3) gm/dl Hct 41.5 (30.3-42.9) % MCV 88 (79-97) fl MCH 29 (28-32) pg MCHC 33 (30-34) % RDW 13.0 L (13.2-15.2) % Plt Count 244 (140-440) K/mm3 Lymph % (Auto) 9.3 L (13.4-35.0) % [place] % (Auto) 2.4 (0.0-7.3) % Eos % (Auto) 0.2 (0.0-4.3) % Baso % (Auto) 0.5 (0.0-1.8) % Lymph # (Auto) 1.2 (1.2-5.4) K/mm3 [place] # (Auto) 0.3 (0.0-0.8) K/mm3 Eos # (Auto) 0.0 (0.0-0.4) K/mm3 Baso # (Auto) 0.1 (0.0-0.1) K/mm3 Seg Neutrophils % 87.6 H (40.0-70.0) % Seg Neutrophils # 10.9 H (1.8-7.7) K/mm3 Sodium 137 (137-145) mmol/L Potassium 4.2 (3.6-5.0) mmol/L Chloride 100.4 (98-107) mmol/L Carbon Dioxide 22 (22-30) mmol/L Anion Gap 19 mmol/L BUN 8 (7-17) mg/dL Creatinine 0.4 L (0.6-1.2) mg/dL Estimated GFR > 60 ml/min BUN/Creatinine Ratio 20 % Glucose 100 (65-100) mg/dL Calcium 9.5 (8.4-10.2) mg/dL Total Bilirubin 0.30 (0.1-1.2) mg/dL AST 14 (5-40) units/L ALT 7 (7-56) units/L Alkaline Phosphatase 76 (35-129) units/L Total Protein 6.9 (6.3-8.2) g/dL Albumin 4.3 (3.9-5) g/dL Albumin/Globulin Ratio 1.7 % Lab Results 06/17/22 06/17/22 06/17/22 Range/Units 08:46 08:46 09:56 WBC 12.5 H (4.5-11.0) K/mm3 RBC 4.71 (3.65-5.03) M/mm3 Hgb 13.7 (10.1-14.3) gm/dl Hct 41.5 (30.3-42.9) % MCV 88 (79-97) fl MCH 29 (28-32) pg MCHC 33 (30-34) % RDW 13.0 L (13.2-15.2) % Plt Count 244 (140-440) K/mm3 Lymph % (Auto) 9.3 L (13.4-35.0) % [place] % (Auto) 2.4 (0.0-7.3) % Eos % (Auto) 0.2 (0.0-4.3) % Baso % (Auto) 0.5 (0.0-1.8) % Lymph # (Auto) 1.2 (1.2-5.4) K/mm3 [place] # (Auto) 0.3 (0.0-0.8) K/mm3 Eos # (Auto) 0.0 (0.0-0.4) K/mm3 Baso # (Auto) 0.1 (0.0-0.1) K/mm3 Seg Neutrophils % 87.6 H (40.0-70.0) % Seg Neutrophils # 10.9 H (1.8-7.7) K/mm3 Sodium 137 (137-145) mmol/L Potassium 4.2 (3.6-5.0) mmol/L Chloride 100.4 (98-107) mmol/L Carbon Dioxide 22 (22-30) mmol/L Anion Gap 19 mmol/L BUN 8 (7-17) mg/dL Creatinine 0.4 L (0.6-1.2) mg/dL Estimated GFR > 60 ml/min BUN/Creatinine Ratio 20 % Glucose 100 (65-100) mg/dL Calcium 9.5 (8.4-10.2) mg/dL Total Bilirubin 0.30 (0.1-1.2) mg/dL AST 14 (5-40) units/L ALT 7 (7-56) units/L Alkaline Phosphatase 76 (35-129) units/L Total Protein 6.9 (6.3-8.2) g/dL Albumin 4.3 (3.9-5) g/dL Albumin/Globulin Ratio 1.7 % Urine Color Yellow (Yellow) Urine Turbidity Clear (Clear) Urine pH 6.0 (5.0-7.0) Ur Specific [place] 1.030 (1.003-1.030) Urine Protein 30 mg/dl (Negative) mg/dL Urine Glucose (UA) Negative (Negative) mg/dL Urine Ketones Negative (Negative) mg/dL Urine Blood Negative (Negative) Urine Nitrite Negative (Negative) Ur Reducing Substances Not Reportable Urine Bilirubin Negative (Negative) Urine Ictotest Not Reportable Urine Urobilinogen 0.0 (<2.0) mg/dL Ur Leukocyte Esterase Negative (Negative) Urine WBC (Auto) < 1.0 (0.0-6.0) /HPF Urine RBC (Auto) 4.0 (0.0-6.0) /HPF U Epithel Cells (Auto) 27.0 H (0-13.0) /HPF Urine Mucus 3+ /HPF Critical care attestation.: If time is entered above; I have spent that time in minutes in the direct care of this critically ill patient, excluding procedure time. ED Disposition Clinical Impression: Nausea and vomiting during Disposition: 01 HOME / SELF CARE / HOMELESS Is pt being admited?: No Condition: Stable Instructions: Nausea and Vomiting, Adult Prescriptions: Ondansetron [Zofran Odt] 4 mg PO Q12HR PRN 3 Days #6 tab.rapdis PRN Reason: Nausea And Vomiting Referrals: SLIME PATEL MD [Primary Care Provider] - 3-5 Days
[2022-06-17 10:00] LABS: Alanine Aminotransferase 7 units/L (7-56); Albumin 4.3 g/dL (3.9-5); Blood Urea Nitrogen 8 mg/dL (7-17); Calcium 9.5 mg/dL (8.4-10.2); Hemolysis Index 10
[2022-06-17 10:02] LABS: BUN/Creatinine Ratio 20
[2022-06-17 10:52] LABS: Basophils # (Auto) 0.1 K/mm3 (0.0-0.1); Basophils % (Auto) 0.5 % (0.0-1.8); Eosinophils % (Auto) 0.2 % (0.0-4.3); Hematocrit 41.5 % (30.3-42.9); Hemoglobin 13.7 gm/dl (10.1-14.3); Lymphocytes # (Auto) 1.2 K/mm3 (1.2-5.4); Lymphocytes % (Auto) 9.3 % (13.4-35.0); Mean Corpuscular HGB Conc 33 % (30-34); Mean Corpuscular Volume 88 fl (79-97); Monocytes # (Auto) 0.3 K/mm3 (0.0-0.8); Monocytes % (Auto) 2.4 % (0.0-7.3); Platelet Count 244 K/mm3 (140-440); Red Blood Count 4.71 M/mm3 (3.65-5.03)
[2022-06-17 11:56] LABS: Mucus,Urine 3+ /HPF; WBC,Urine < 1.0 /HPF (0.0-6.0)
[2022-06-17 12:28] LABS: Bilirubin,Urine Negative (Negative); Blood,Urine Negative (Negative); Color,Urine Yellow (Yellow)
[2022-06-17 13:02] VITALS: BP 115/72
== END 2022-06-17 13:00 | disposition home or self-care (01) ==
LOC: ED 07:26
DX: O21.9 Vomiting of pregnancy, unspecified (principal); J45.909 Unspecified asthma, uncomplicated; Z91.041 Radiographic dye allergy status; Z90.13 Acquired absence of bilateral breasts and nipples
CPT/HCPCS: 36415; 80053; 81001; 85025; 96361; 96374; 99284; J2405; J7030

== ENCOUNTER 2022-07-14 10:04 | Emergency (ER) | payer OTHER ==
[2022-07-14 10:39] VITALS: BP 135/83
[2022-07-14] MEDS ORDERED: LIDOCAINE (1%) 10 MG/1 ML VIAL 20 ML MDV INFILTRATI ONE (13:12)
[2022-07-14] MEDS ORDERED: LIDOCAINE-MPF (1%) 10 MG/1 ML VIAL 5 ML INFILTRATI ONE (13:19)
--- NOTE | 2022-07-14 13:22 | Emergency Department Report ---
- General Chief complaint: Skin/Abscess/Foreign Body Stated complaint: INGROWN HAIR INFECTION Source: patient Mode of arrival: Ambulatory Limitations: No Limitations - History of Present Illness Initial comments: 26 presents to the ED complaining abscess to the right lower inner thigh area x 2 days. Patient states she has been using warm compress to help expel the abscess without positive result. Patient state etiology of abscess is shaving. patient to have mild drainage noted from the abscess. Patient denies any fever chills or nausea. Patient is alert and oriented x3. Patient is 14 weeks pregna ntCandie LOPEZ complaint: abscess/boil Onset/Timin -: days(s) Severity: moderate Severity scale (0 -10): 8 Quality: aching Consistency: intermittent Improves with: none Worsens with: none Associated symptoms: denies other symptoms - Related Data Previous Rx's Medication Instructions Recorded Last Taken Type Ondansetron [Zofran Odt] 4 mg PO Q8HR PRN #20 tab.rapdis 02/01/21 Unknown Rx Famotidine [Pepcid] 20 mg PO BID #40 tablet 02/21/21 Unknown Rx Prochlorperazine Maleate 10 mg PO Q6H PRN #30 tablet 02/21/21 Unknown Rx [Compazine] Promethazine HCl [Phenergan SUPPOS] 25 mg RC Q6H PRN #20 supp.rect 02/21/21 Unknown Rx Ibuprofen [Motrin] 600 mg PO Q8H PRN #60 tablet 08/27/21 Unknown Rx Ondansetron [Zofran Odt] 4 mg PO Q12HR PRN 3 Days #6 06/17/22 Unknown Rx tab.rapdis Acetaminophen/Codeine [Tylenol 1 tab PO Q6H PRN 3 Days #12 tab 07/14/22 Unknown Rx /Codeine # 3 tab] Amoxicillin/K Clav Tab [Augmentin 1 tab PO Q12HR 10 Days #20 tab 07/14/22 Unknown Rx 875 mg] Allergies Allergy/AdvReac Type Severity Reaction Status Date / Time iodine Allergy Hives Verified 01/10/19 09:57 seafood Allergy Hives Uncoded 09/04/16 13:33 Abscess Boil HPI - HPI Chief Complaint: Skin/Abscess/Foreign Body Stated Complaint: INGROWN HAIR INFECTION Home Medications: Previous Rx's Medication Instructions Recorded Last Taken Type Ondansetron [Zofran Odt] 4 mg PO Q8HR PRN #20 tab.rapdis 02/01/21 Unknown Rx Famotidine [Pepcid] 20 mg PO BID #40 tablet 02/21/21 Unknown Rx Prochlorperazine Maleate 10 mg PO Q6H PRN #30 tablet 02/21/21 Unknown Rx [Compazine] Promethazine HCl [Phenergan SUPPOS] 25 mg RC Q6H PRN #20 supp.rect 02/21/21 Unknown Rx Ibuprofen [Motrin] 600 mg PO Q8H PRN #60 tablet 08/27/21 Unknown Rx Ondansetron [Zofran Odt] 4 mg PO Q12HR PRN 3 Days #6 06/17/22 Unknown Rx tab.rapdis Acetaminophen/Codeine [Tylenol 1 tab PO Q6H PRN 3 Days #12 tab 07/14/22 Unknown Rx /Codeine # 3 tab] Amoxicillin/K Clav Tab [Augmentin 1 tab PO Q12HR 10 Days #20 tab 07/14/22 Unknown Rx 875 mg] Allergies/Adverse Reactions: Allergies Allergy/AdvReac Type Severity Reaction Status Date / Time iodine Allergy Hives Verified 01/10/19 09:57 seafood Allergy Hives Uncoded 09/04/16 13:33 ED Review of Systems ROS: Stated complaint: INGROWN HAIR INFECTION Other details as noted in HPI Constitutional: denies: chills, fever Eyes: denies: eye pain, eye discharge, vision change ENT: denies: ear pain, throat pain Respiratory: denies: cough, shortness of breath, wheezing Cardiovascular: denies: chest pain, palpitations Endocrine: no symptoms reported Gastrointestinal: denies: abdominal pain, nausea, diarrhea Genitourinary: denies: urgency, dysuria, discharge Musculoskeletal: denies: back pain, joint swelling, arthralgia Skin: rash. denies: lesions Neurological: denies: headache, weakness, paresthesias Psychiatric: denies: anxiety, depression Hematological/Lymphatic: denies: easy bleeding, easy bruising ED Past Medical Hx - Past Medical History Previous Medical History?: Yes Hx Hypertension: No Hx Heart Attack/AMI: No Hx Diabetes: No Hx Deep Vein Thrombosis: No Hx Liver Disease: No Hx Renal Disease: No Hx Sickle Cell Disease: No Hx Seizures: Yes (as a child) Hx Asthma: Yes (as a child) Hx COPD: No Hx HIV: No Additional medical history: Vaginal delivery 05-16-2013 and 08-25-2021 - Surgical History Hx Pacemaker: No Hx Internal Defibrillator: No - Social History Smoking Status: Never Smoker - Medications Home Medications: Home Medications Medication Instructions Recorded Confirmed Last Taken Type Ondansetron [Zofran Odt] 4 mg PO Q8HR PRN #20 tab.rapdis 02/01/21 Unknown Rx Famotidine [Pepcid] 20 mg PO BID #40 tablet 02/21/21 Unknown Rx Prochlorperazine Maleate 10 mg PO Q6H PRN #30 tablet 02/21/21 Unknown Rx [Compazine] Promethazine HCl [Phenergan SUPPOS] 25 mg RC Q6H PRN #20 supp.rect 02/21/21 Unknown Rx Ibuprofen [Motrin] 600 mg PO Q8H PRN #60 tablet 08/27/21 Unknown Rx Ondansetron [Zofran Odt] 4 mg PO Q12HR PRN 3 Days #6 06/17/22 Unknown Rx tab.rapdis Acetaminophen/Codeine [Tylenol 1 tab PO Q6H PRN 3 Days #12 tab 07/14/22 Unknown Rx /Codeine # 3 tab] Amoxicillin/K Clav Tab [Augmentin 1 tab PO Q12HR 10 Days #20 tab 07/14/22 Unknown Rx 875 mg] ED Physical Exam - General Limitations: No Limitations General appearance: alert, in no apparent distress - Head Head exam: Present: atraumatic, normocephalic - Eye Eye exam: Present: normal appearance - ENT ENT exam: Present: mucous membranes moist - Neck Neck exam: Present: normal inspection - Respiratory Respiratory exam: Present: normal lung sounds bilaterally. Absent: respiratory distress - Cardiovascular Cardiovascular Exam: Present: regular rate, normal rhythm. Absent: systolic murmur, diastolic murmur, rubs, gallop - GI/Abdominal GI/Abdominal exam: Present: soft, normal bowel sounds - Extremities Exam Extremities exam: Present: normal inspection - Back Exam Back exam: Present: normal inspection - Neurological Exam Neurological exam: Present: alert, oriented X3 - Psychiatric Psychiatric exam: Present: normal affect, normal mood - Skin Skin exam: Present: warm, dry, intact, normal color. Absent: rash ED Course Vital Signs 07/14/22 10:35 Temperature 97.9 F Pulse Rate 100 H Respiratory 18 Rate Blood Pressure 135/83 O2 Sat by Pulse 99 Oximetry ED Medical Decision Making - Medical Decision Making 26 presents to the ED complaining abscess to the right lower inner thigh area x 2 days. Patient states she has been using warm compress to help expel the abscess without positive result. Patient state etiology of abscess is shaving. patient to have mild drainage noted from the abscess. Patient denies any fever chills or nausea. Patient is alert and oriented x3. Patient is 14 weeks . Rechecked the patient is resting quietly , comfortable and feeling better. I discussed the results of diagnostic study, my clinical impression and the plan for further treatment with the patient. Patient agrees with plan and discharge at this present time. All question addressed. I have given the patient instruction regarding a diagnosis ,expectation ,follow- up and return precaution. I explained to the patient that emergent condition may arise and to return to the ED for new worsen and any new persisting condition. I have explained the importance of following up with the primary care physician or referral physician listed below has instructed. The patient verbalized understanding of discharge instruction. Critical care attestation.: If time is entered above; I have spent that time in minutes in the direct care of this critically ill patient, excluding procedure time. ED Disposition Clinical Impression: Abscess Disposition: 01 HOME / SELF CARE / HOMELESS Is pt being admited?: No Does the pt Need Aspirin: No Condition: Stable Instructions: Skin Abscess, [id number] Additional Instructions: Follow-up with [employer] Take medication as prescribed apply warm compress to continue to expel Prescriptions: Amoxicillin/K Clav Tab [Augmentin 875 mg] 1 tab PO Q12HR 10 Days #20 tab Acetaminophen/Codeine [Tylenol /Codeine # 3 tab] 1 tab PO Q6H PRN 3 Days #12 tab PRN Reason: Pain, Mild (1-3) Forms: Work/School Release Form(ED) Time of Disposition: 13:40
== END 2022-07-14 14:00 | disposition home or self-care (01) ==
LOC: ED 10:04
DX: O26.892 Other specified pregnancy related conditions, second trimester (principal); L02.415 Cutaneous abscess of right lower limb; J45.909 Unspecified asthma, uncomplicated; Z3A.14 14 weeks gestation of pregnancy; Z88.6 Allergy status to analgesic agent; Z91.013 Allergy to seafood; Z79.899 Other long term (current) drug therapy
CPT/HCPCS: 99282; J3490